=== PATIENT | female | born 1960 | race Caucasian/White ===

== ENCOUNTER → 2017-02-22 | Outpatient (CLI) | payer MEDICARE, OTHER ==
--- NOTE | 2017-02-22 15:49 | US ---
EXAMINATION TYPE: US venous doppler duplex UE LT DATE OF EXAM: 02/22/2017 COMPARISON: NONE CLINICAL HISTORY: M79.632 Pain in left forearm. Patient stated had pain with physician palpation over left posterior forearm thickening. Palpable noted by patient x 2 years. SIDE PERFORMED: left Grayscale, color doppler, spectral doppler imaging performed of the deep veins of the upper extremiti es. There is normal flow, compressibility and vascular waveforms. Left Arm: Negative for DVT. Negative for SVT. No discreet mass is noted at patient's palpable. IMPRESSION: No evidence for DVT.
== END | disposition home or self-care (01) ==
LOC: RADUSWWP 14:07
PROVIDERS: ATTEND Family Medicine
DX: M79.632 Pain in left forearm (principal)

== ENCOUNTER → 2017-05-16 | Outpatient (CLI) | payer MEDICARE, OTHER ==
--- NOTE | 2017-05-18 20:32 | EEG ---
ELECTROENCEPHALOGRAM REPORT VIDEO-ASSISTED NYSTAGMOGRAPHIC REPORT: AGE: 57 VNG INDICATIONS: Drewr-xwc-kqly-old female with vertigo. VNG FINDINGS: SACCADES: Saccades shows intact peak velocities, accuracies and latencies. GAZE TEST: Gaze with fixation shows no nystagmus in any of the directions of gaze. SINUSOIDAL TRACKING: Tracking shows no significant breakups. OKN TEST: Optikokinetic nystagmus shows no significant asymmetry. ANGELINA-HALLPIKE TEST: Metcalfe-Hallpike maneuvers are negative bilaterally. POSITION TEST: Static position testing in 6 positions tested, both with eyes open and then vision denied, shows no nystagmus. CALORIC TEST: Caloric testing shows a 20% unilateral right caloric weakness. Fixation index negative. Directional preponderance negative. IMPRESSION: Borderline chronic well-compensated vestibulopathy on the right. Other features of this VNG are unremarkable. MMJOAN / IJN: [id number] /
== END | disposition home or self-care (01) ==
LOC: NEUROMAIN 12:39
PROVIDERS: ATTEND Otolaryngology
DX: R42 Dizziness and giddiness (principal)
CPT/HCPCS: 92537; 92540

== ENCOUNTER → 2018-12-03 | Outpatient (CLI) | payer MEDICARE, OTHER ==
--- NOTE | 2018-12-05 11:16 | MM ---
Reason for exam: screening (asymptomatic). Last mammogram was performed 3 years and 2 months ago. History: Patient is postmenopausal. Physical Findings: A clinical breast exam by your physician is recommended on an annual basis and results should be correlated with mammographic findings. MG Screening Mammo w CAD Bilateral CC, MLO, and XCCL view(s) were taken. Prior study comparison: October 05, 2015, bilateral MG screening mammo w CAD. June 25, 2012, bilateral digital screening mammo w/CAD. There are scattered fibroglandular densities. No significant changes when compared with prior studies. ASSESSMENT: Benign, BI-RAD 2 RECOMMENDATION: Routine screening mammogram of both breasts in 1 year.
== END | disposition home or self-care (01) ==
LOC: RADMAMWWP 13:08
PROVIDERS: ATTEND Family Medicine
DX: Z12.31 Encounter for screening mammogram for malignant neoplasm of breast (principal)
CPT/HCPCS: 77067

== ENCOUNTER 2019-08-03 15:19 | Emergency (ER) | payer MEDICARE, OTHER ==
[2019-08-03] MEDS ORDERED: ONDANSETRON 4 MG/2 ML VIAL IM STA (15:50)
[2019-08-03] MEDS ORDERED: MECLIZINE 12.5 MG TAB PO STA (15:50)
--- NOTE | 2019-08-03 15:54 | ED ---
Fall HPI - General Chief Complaint: Fall Stated Complaint: Fall out of bed, Headache Time Seen by Provider: 08/03/19 15:34 Source: patient Mode of arrival: wheelchair - History of Present Illness Initial Comments: Patient is a 69-year-old female presenting to the emergency department with chief complaint of a fall. Patient reports 2 nights ago she went to sleep and throughout the night rolled off and fell off the bed to the floor. She reports in the morning she woke up crying and on the floor. She reports afterwards she developed nausea with multiple episodes of vomiting. She also reports dizziness where the room is spinning around her. She reports the symptoms are persistent until last night when she went to bed and woke up this morning without issues. After waking up, the nausea continued along with the vomiting and dizziness. Patient denies taking medication to alleviate his symptoms. Patient has no history of vertigo. - Related Data Home Medications Medication Instructions Recorded Confirmed Aspirin 81 mg PO DAILY 07/26/17 07/26/17 Budesonide/Formoterol Fumarate 1 puff INHALATION BID 07/26/17 07/26/17 [Symbicort 80-4.5 Mcg Inhaler] Cyclobenzaprine [Flexeril] 10 mg PO HS 07/26/17 07/26/17 Fluticasone Nasal [place] [Flonase 2 spr EA NOSTRIL DAILY 07/26/17 07/26/17 Nasal [place]] HYDROcodone/APAP 10-325MG [[place] 1 tab PO TID 07/26/17 07/26/17 10-325] Insulin Aspart Protam & Aspart 15 unit SQ AC-SUPPER 07/26/17 07/26/17 [NovoLOG MIX 70-30 Flexpen] Insulin Aspart Protam & Aspart 30 unit SQ AC-BRKFST 07/26/17 07/26/17 [NovoLOG MIX 70-30 Flexpen] Rosuvastatin Calcium [Crestor] 40 mg PO HS 07/26/17 07/26/17 clonazePAM [KlonoPIN] 1 mg PO TID 07/26/17 07/26/17 metFORMIN HCL 1,000 mg PO BID 07/26/17 07/26/17 Previous Rx's Medication Instructions Recorded Ibuprofen [Motrin] 600 mg PO Q6HR PRN #20 tab 05/29/15 Meclizine [Antivert] 25 mg PO TID PRN #15 tab 08/03/19 Ondansetron Odt [Zofran Odt] 4 mg PO Q8HR PRN #10 tab 08/03/19 Allergies Allergy/AdvReac Type Severity Reaction Status Date / Time benazepril [From Lotensin] Allergy Dyspnea Verified 07/26/17 08:57 ezetimibe [From Zetia] Allergy Rash/Hives Verified 07/26/17 08:57 niacin Allergy Rash/Hives Verified 07/26/17 08:57 Review of Systems ROS Statement: Those systems with pertinent positive or pertinent negative responses have been documented in the HPI. ROS Other: All systems not noted in ROS Statement are negative. Past Medical History Past Medical History: COPD, Diabetes Mellitus, Deep Vein Thrombosis (DVT), Hyperlipidemia Additional Past Medical History / Comment(s): MIGRAINE HEADACHE, History of Any Multi-Drug Resistant Organisms: None Reported Past Surgical History: Appendectomy, Hysterectomy, Tonsillectomy Additional Past Surgical History / Comment(s): tubes in ears Past Anesthesia/Blood Transfusion Reactions: No Reported Reaction Past Psychological History: Anxiety, Depression Smoking Status: Current every day smoker Past Alcohol Use History: None Reported Past Drug Use History: None Reported - Past Family History Father Family Medical History: Cancer General Exam Limitations: no limitations General appearance: alert, in no apparent distress, obese Head exam: Present: atraumatic, normocephalic, normal inspection. Absent: other (Negative Johnson sign, negative raccoon eyes, negative hemotympanum) Eye exam: Present: normal appearance, PERRL, EOMI Pupils: Present: normal accommodation ENT exam: Present: normal exam, mucous membranes moist Neck exam: Present: normal inspection, full ROM. Absent: tenderness Respiratory exam: Present: normal lung sounds bilaterally Cardiovascular Exam: Present: regular rate, normal rhythm, normal heart sounds Extremities exam: Present: normal inspection, full ROM, tenderness (Right forearm tenderness) Back exam: Present: normal inspection, full ROM Neurological exam: Present: alert, oriented X3 Psychiatric exam: Present: normal affect, normal mood Skin exam: Present: warm, dry, intact, normal color Course Vital Signs 08/03/19 08/03/19 15:27 18:54 Temperature 97.6 F 98.3 F Pulse Rate 90 91 Respiratory 18 16 Rate Blood Pressure 136/75 135/78 O2 Sat by Pulse 97 98 Oximetry Medical Decision Making - Medical Decision Making Patient is a 59-year-old female presenting to emergency Department with chief complaint of a fall. Patient fell off the bed while she was sleeping 2 days ago. Since then the patient has continued dizziness with the room spins around her which is causing her nausea and vomiting. Patient denies one-sided weakness or paresthesias. Patient is not on blood thinners. CT of the brain and C-spine is unremarkable. Patient also had a complaint of right forearm pain x-ray negative. I performed a Margot-Hallpike maneuver causing her increased dizziness. Patient was given Ativan and meclizine. Reevaluation patient reports improvement in his symptoms. Patient was also given Zofran for nausea. I performed the Luis maneuver, however it yielded minimal results. No nystagmus noted. Patient stated that she had "ear problems" but cannot remember the exact diagnosis. I suspect the patient has BPPV. Patient was advised to follow with an ENT specialist. Patient given Zofran and Antivert. Patient advised about the possible side effects of the medication. Strict return parameters were thoroughly discussed the patient is understanding and agreeable. Case discussed with physician. Disposition Clinical Impression: Fall Disposition: HOME SELF-CARE Condition: Stable Instructions (If sedation given, give patient instructions): Vertigo (DC), Benign Paroxysmal Positional Vertigo (ED) Additional Instructions: Please follow up with an ENT specialist. Please return to emergency department is symptoms worsen. Take prescribed medication as directed. Prescriptions: Meclizine [Antivert] 25 mg PO TID PRN #15 tab PRN Reason: Vertigo Is patient prescribed a controlled substance at d/c from ED?: No Referrals: Brian Fields MD [Primary Care Provider] - 1-2 days Rey Hallman DO [Doctor of Osteopathic Medicine] - 1-2 days Time of Disposition: 18:14
--- NOTE | 2019-08-03 16:13 | XR ---
EXAMINATION TYPE: XR forearm RT DATE OF EXAM: 08/03/2019 COMPARISON: NONE HISTORY: Pain TECHNIQUE: 2 views FINDINGS: I see no fracture nor dislocation. Elbow joint and wrist joint appear intact. IMPRESSION: Negative right forearm exam.
--- NOTE | 2019-08-03 17:01 | CT ---
EXAMINATION TYPE: CT brain cj wo con DATE OF EXAM: 08/03/2019 COMPARISON: None HISTORY: Pt fell out of bed, hitting head. CT DLP: 1760.2 mGycm Automated exposure control for dose reduction was used. Ventricles and sulci appear normal. There is no mass effect nor midline shift. There is no sign of in tracranial hemorrhage. The calvarium is intact. Cervical vertebra have normal alignment. There is posterior mild disc herniation and calcification at C5-6. Facet joints are intact. The skull base is intact. There is no evidence of a fracture. There i s no significant disc space narrowing. IMPRESSION: Negative CT scan of the brain. Mild spondylosis at C5-6. No fracture.
[2019-08-03] MEDS ORDERED: LORazepam 1 MG TAB PO STA (18:13)
[2019-08-03 18:56] VITALS: BP 135/78; PULSE 91; RESP 16; TEMP 98.3
== END 2019-08-03 18:54 | disposition home or self-care (01) ==
LOC: EC 15:19
DX: M79.631 Pain in right forearm (principal); R11.2 Nausea with vomiting, unspecified; R42 Dizziness and giddiness; J44.9 Chronic obstructive pulmonary disease, unspecified; E11.9 Type 2 diabetes mellitus without complications; E78.5 Hyperlipidemia, unspecified; F32.9 Major depressive disorder, single episode, unspecified; F41.9 Anxiety disorder, unspecified; F17.200 Nicotine dependence, unspecified, uncomplicated; Z88.8 Allergy status to other drugs, medicaments and biological substances; Z79.4 Long term (current) use of insulin; Z79.51 Long term (current) use of inhaled steroids; Z79.82 Long term (current) use of aspirin; Z79.891 Long term (current) use of opiate analgesic; Z79.899 Other long term (current) drug therapy; W06.XXXA Fall from bed, initial encounter; Y93.89 Activity, other specified; Y92.009 Unspecified place in unspecified non-institutional (private) residence as the place of occurrence of the external cause
CPT/HCPCS: 73090; 72125; 70450; 99284; 96372; J2405

== ENCOUNTER → 2019-09-10 | Outpatient (CLI) | payer MEDICARE, OTHER ==
--- NOTE | 2019-09-12 13:26 | ENG ---
ELECTRONYSTAGMOGRAM REPORT VNG REPORT: VNG INDICATIONS: A 59-year-old female with endorsement of dizziness, lightheadedness, imbalance, vertigo and falling since 2017 with symptoms increasing in October 2018, experiencing these 2 to 3 times a day, lasting for 2 to 3 minutes at a time. Dizziness can be precipitated by going from a lying to a seated position, rolling over in bed, bending over or movements of the head. History of diabetes and hypertension. VNG FINDINGS: Saccades shows intact peak velocities and borderline accuracies and latencies. Gaze with fixation shows no nystagmus in any of the directions of gaze including centrally with vision denied. Tracking shows impairments. Optokinetic nystagmus showed no asymmetry at slower speed and patient had difficulty with faster speeds and the test in general. Static position testing in 6 different positions shows no spontaneous nystagmus with the eyes open or with vision denied. Dynamic position testing was not done due to low back pain. Caloric testing shows bilateral caloric weakness. VNG IMPRESSION: 1. Bilateral weakness is suggested by testing today and so no determination as to vestibulopathy could be made. There was no spontaneous nystagmus. Another test such as head thrust test or if available active and passive rotation testing required to confirm presence of bilateral vestibular dysfunction. 2. Multiple abnormalities including impaired tracking and borderline saccades are features favoring central nervous system dysfunction. Clinical correlation necessary in that regard. 3. Dynamic position testing was not performed and so benign positional vertigo not excluded. DEBRA / NAYN: [id number] /
== END | disposition home or self-care (01) ==
LOC: NEUROMAIN 06:49
PROVIDERS: ATTEND Otolaryngology
DX: H81.8X3 Other disorders of vestibular function, bilateral (principal)
CPT/HCPCS: 92537; 92540

== ENCOUNTER → 2019-10-02 | Outpatient (CLI) | payer MEDICARE, OTHER ==
--- NOTE | 2019-10-02 10:15 | CT ---
EXAMINATION TYPE: CT iac wo con DATE OF EXAM: 10/02/2019 COMPARISON: None HISTORY: Vertigo CT DLP: 150mGycm Automated exposure control for dose reduction was used. FINDINGS: The external auditory canals are patent bilaterally. Moderate opacification right-sided mas toid air cells compatible with chronic mastoiditis with mild coalescence suggested. Left-sided mastoi d air cells are well-aerated. There is soft tissue within the right-sided epitympanum felt to reflect cholesteatoma without bony destruction. The scutum is preserved bilaterally. No soft tissue is noted to surround the left-sided ossicular chain. Destruction seen. The cochlea and the semicircular canal s are symmetric and unremarkable. Vestibular aqueduct and internal carotid canal appear unremarkable . Temporomandibular joints are maintained bilaterally. IMPRESSION: 1. Suspect right-sided cholesteatoma without bone destruction. 2. Right-sided mastoiditis with the mild coalescence suggested.
== END | disposition home or self-care (01) ==
LOC: RADCTMAIN 09:07
PROVIDERS: ATTEND Otolaryngology
DX: H93.3X9 Disorders of unspecified acoustic nerve (principal); R42 Dizziness and giddiness
CPT/HCPCS: 70480

== ENCOUNTER 2019-10-11 09:17 | Emergency (ER) | payer MEDICARE, OTHER ==
[2019-10-11 09:22] VITALS: RESP 18; TEMP 98.1
[2019-10-11] MEDS ORDERED: methylPREDNISolone SOD SUCCI 125 MG/2 ML VIAL IV STA (09:48)
[2019-10-11] MEDS ORDERED: methylPREDNISolone SOD SUCCI 125 MG/2 ML VIAL IM ONE (10:04)
--- NOTE | 2019-10-11 10:26 | XR ---
EXAMINATION TYPE: XR chest 2V DATE OF EXAM: 10/11/2019 HISTORY: cough, sob. REFERENCE: Previous study dated 05/29/2015. FINDINGS: The lungs remain clear. Pleural spaces are clear. The heart is not enlarged. IMPRESSION: NORMAL CHEST.
[2019-10-11] MEDS ORDERED: IPRATROPIUM-ALBUTEROL 3 ML NEB INHALATION STA (10:35)
--- NOTE | 2019-10-11 10:51 | ED ---
URI HPI - General Chief Complaint: Upper Respiratory Infection Stated Complaint: coughing/ODESSA Time Seen by Provider: 10/11/19 09:31 Source: patient, RN notes reviewed, old records reviewed Mode of arrival: ambulatory Limitations: no limitations - History of Present Illness Initial Comments: 51-year-old female, history of smoking. She presents today with cough congestion sore throat and bodyaches for the past week. She is here with her daughter with similar complaints. Patient reports no specific chest pain. She states that her coughing seemed to be somewhat worse at night. Patient states she is trying to quit smoking. - Related Data Home Medications Medication Instructions Recorded Confirmed Aspirin 81 mg PO DAILY 07/26/17 07/26/17 Budesonide/Formoterol Fumarate 1 puff INHALATION BID 07/26/17 07/26/17 [Symbicort 80-4.5 Mcg Inhaler] Cyclobenzaprine [Flexeril] 10 mg PO HS 07/26/17 07/26/17 Fluticasone Nasal [place] [Flonase 2 spr EA NOSTRIL DAILY 07/26/17 07/26/17 Nasal [place]] HYDROcodone/APAP 10-325MG [[place] 1 tab PO TID 07/26/17 07/26/17 10-325] Insulin Aspart Protam & Aspart 15 unit SQ AC-SUPPER 07/26/17 07/26/17 [NovoLOG MIX 70-30 Flexpen] Insulin Aspart Protam & Aspart 30 unit SQ AC-BRKFST 07/26/17 07/26/17 [NovoLOG MIX 70-30 Flexpen] Rosuvastatin Calcium [Crestor] 40 mg PO HS 07/26/17 07/26/17 clonazePAM [KlonoPIN] 1 mg PO TID 07/26/17 07/26/17 metFORMIN HCL 1,000 mg PO BID 07/26/17 07/26/17 Previous Rx's Medication Instructions Recorded Ibuprofen [Motrin] 600 mg PO Q6HR PRN #20 tab 05/29/15 Meclizine [Antivert] 25 mg PO TID PRN #15 tab 08/03/19 Ondansetron Odt [Zofran Odt] 4 mg PO Q8HR PRN #10 tab 08/03/19 Acetaminophen Tab [Tylenol Tab] 500 mg PO Q6H #20 tablet 02/22/20 Albuterol Inhaler [Ventolin Hfa 1 - 2 puff INHALATION RT-Q6H PRN 10/11/19 Inhaler] #1 inhaler Ipratropium-Albuterol Nebulize 3 ml INHALATION QID #30 neb 10/11/19 [Duoneb 0.5 mg-3 mg/3 ml Soln] Ipratropium-Albuterol Nebulize 3 ml INHALATION QID #30 neb 10/11/19 [Duoneb 0.5 mg-3 mg/3 ml Soln] Ipratropium-Albuterol Nebulize 3 ml INHALATION QID #30 neb 10/11/19 [Duoneb 0.5 mg-3 mg/3 ml Soln] Oseltamivir [Tamiflu] 75 mg PO DAILY #10 cap 10/11/19 Allergies Allergy/AdvReac Type Severity Reaction Status Date / Time benazepril [From Lotensin] Allergy Dyspnea Verified 07/26/17 08:57 ezetimibe [From Zetia] Allergy Rash/Hives Verified 07/26/17 08:57 niacin Allergy Rash/Hives Verified 07/26/17 08:57 Review of Systems ROS Statement: Those systems with pertinent positive or pertinent negative responses have been documented in the HPI. ROS Other: All systems not noted in ROS Statement are negative. Past Medical History Past Medical History: COPD, Diabetes Mellitus, Deep Vein Thrombosis (DVT), Hyperlipidemia Additional Past Medical History / Comment(s): MIGRAINE HEADACHE, History of Any Multi-Drug Resistant Organisms: None Reported Past Surgical History: Appendectomy, Hysterectomy, Tonsillectomy Additional Past Surgical History / Comment(s): tubes in ears Past Anesthesia/Blood Transfusion Reactions: No Reported Reaction Past Psychological History: Anxiety, Depression Smoking Status: Current every day smoker Past Alcohol Use History: None Reported Past Drug Use History: None Reported - Past Family History Father Family Medical History: Cancer General Exam - General Exam Comments Initial Comments: 59-year-old female. Alert and oriented 3. No distress. General: Well appearing, well nourished, in no distress. Oriented x 3, normal mood and affect . Ambulating without difficulty. Skin: Good turgor, no rash, unusual bruising or prominent lesions Hair: Normal texture and distribution. HEENT: Head: Normocephalic, atraumatic, no visible or palpable masses, depressions, or scaring. Eyes: Visual acuity intact, conjunctiva clear, sclera non-icteric, EOM intact, PERRL. Ears: EACs clear, TMs translucent & cone of light visualized. hearing intact. Nose: No external lesions, mucosa non-inflamed, septum and turbinates normal Mouth: Mucous membranes moist, no mucosal lesions. Teeth/Gums: No obvious caries or periodontal disease. No gingival inflammation or significant resorption. Pharynx: Mucosa non-inflamed, no tonsillar hypertrophy or exudate Neck: Supple, without lesions, bruits, or adenopathy, thyroid non-enlarged and non-tender Heart: No cardiomegaly or thrills; regular rate and rhythm, no murmur or gallop Lungs: No wheezing. No stridor. Abdomen: Bowel sounds normal, no tenderness, organomegaly, masses, or hernia Back: Spine normal without deformity or tenderness, no CVA tenderness Extremities: No amputations or deformities, cyanosis, edema or varicosities, peripheral pulses intact Musculoskeletal: Normal gait and station. No misalignment, asymmetry, crepitation, defects, tenderness, masses, effusions, decreased range of motion, instability, atrophy or abnormal strength or tone in the head, neck, spine, ribs, pelvis or extremities. Neurologic: CN 2-12 normal. Sensation to pain, touch, and proprioception normal. DTRs normal in upper and lower extremities. No pathologic reflexes. Limitations: no limitations Course Vital Signs 10/11/19 10/11/19 10/11/19 09:19 10:56 11:06 Temperature 98.1 F Pulse Rate 89 92 90 Respiratory 18 Rate Blood Pressure 119/67 O2 Sat by Pulse 96 Oximetry 10/11/19 11:24 Temperature Pulse Rate 92 Respiratory 18 Rate Blood Pressure 112/70 O2 Sat by Pulse 93 L Oximetry Medical Decision Making - Medical Decision Making 51-year-old female with sore throat cough congestion. Patient is a smoker. She has been wheezing on exam. Patient is positive for influenza. Patient will be started on Tamiflu, discussed dosing Motrin Tylenol. She is given a breathing treatment July. Discussed return parameters and close PCP follow-up. Patient will also be prescribed due to treatments to use for abdominal nebulizer. All questions answered return parameters were discussed. - Lab Data Lab Results 10/11/19 Range/Units 09:57 Influenza Type A RNA Detected H (Not Detectd) Influenza Type B (PCR) Not Detected (Not Detectd) - Radiology Data Radiology results: report reviewed EKG shows 20 4:42 AM shows normal sinus rhythm normal EKG. Ventricular rate of 92 bpm. Was 132 ms. Stressors and is 86 no seconds. QT QTc is 352/435 ms. Disposition Clinical Impression: Influenza A, Bronchitis Disposition: HOME SELF-CARE Condition: Good Instructions (If sedation given, give patient instructions): Influenza (ED) Additional Instructions: Patient advsied to a take Tylenol or Motrin for fever and pain. Taking the steroid use inhaler as needed. Return to ED if any alarming signs or symptoms occur. Prescriptions: Ipratropium-Albuterol Nebulize [Duoneb 0.5 mg-3 mg/3 ml Soln] 3 ml INHALATION QID #30 neb Ipratropium-Albuterol Nebulize [Duoneb 0.5 mg-3 mg/3 ml Soln] 3 ml INHALATION QID #30 neb Ipratropium-Albuterol Nebulize [Duoneb 0.5 mg-3 mg/3 ml Soln] 3 ml INHALATION QID #30 neb Oseltamivir [Tamiflu] 75 mg PO DAILY #10 cap Acetaminophen Tab [Tylenol Tab] 500 mg PO Q6H #20 tablet Albuterol Inhaler [Ventolin Hfa Inhaler] 1 - 2 puff INHALATION RT-Q6H PRN #1 inhaler PRN Reason: Shortness Of Breath Is patient prescribed a controlled substance at d/c from ED?: No Referrals: Brian Fields MD [Primary Care Provider] - 1-2 days Time of Disposition: 10:49
[2019-10-11 11:25] VITALS: BP 112/70; PULSE 92
== END 2019-10-11 11:24 | disposition home or self-care (01) ==
LOC: EC 09:17
DX: J10.1 Influenza due to other identified influenza virus with other respiratory manifestations (principal); J40 Bronchitis, not specified as acute or chronic; E11.9 Type 2 diabetes mellitus without complications; E78.5 Hyperlipidemia, unspecified; F41.9 Anxiety disorder, unspecified; F32.9 Major depressive disorder, single episode, unspecified; F17.200 Nicotine dependence, unspecified, uncomplicated; Z79.4 Long term (current) use of insulin; Z79.82 Long term (current) use of aspirin; Z79.51 Long term (current) use of inhaled steroids; Z79.899 Other long term (current) drug therapy; Z88.8 Allergy status to other drugs, medicaments and biological substances; Z86.718 Personal history of other venous thrombosis and embolism
CPT/HCPCS: 94640; 87502; 71046; 99285; 96372; J2930

== ENCOUNTER → 2020-12-02 | Outpatient (CLI) | payer MEDICARE, OTHER ==
--- NOTE | 2020-12-02 16:18 | CONS ---
CONSULTATION DATE OF SERVICE: 12/02/2020 This 60-year-old lady has been evaluated in [facility] for obstructive sleep apnea- hypopnea syndrome. HISTORY OF PRESENT ILLNESS/SLEEP-WAKE EVALUATION: The patient was diagnosed with obstructive sleep apnea 6-1/2 years ago and was started on treatment with CPAP but stopped treatment more than one year ago. At present her sleep schedule is from 11 p.m. to 6 or 7 a.m. She does have problems with falling asleep, has a TV set in the bedroom. She snores loudly and wakes up from sleep up to 5 times, with up to 4 episodes of nocturia. Her symptoms are also positive for kicking at night. She wakes up with a dry mouth, heartburn, episodes of gasping for air, choking, restless legs, sleeptalking, sweating. In the morning the patient wakes up tired, worries about falling asleep during the day. Bigelow Sleepiness Scale is 5. PAST MEDICAL HISTORY: Positive for hypertension, diabetes mellitus, arthritis. PAST SURGICAL HISTORY: Appendectomy, tonsillectomy, total hysterectomy. MEDICATIONS: 1. Hydrocodone 3 times a day. 2. Rosuvastatin 40 mg once a day. 3. Metformin 1000 mg twice a day. 4. Meclizine 25 mg 4 times a day. 5. Clonazepam 0.5 mg twice a day. 6. Cyclobenzaprine 3 times a day. 7. Diclofenac 7.5 mg twice a day. 8. NovoLog twice a day. SOCIAL HISTORY: Positive for smoking for 20 pack/years. Alcohol consumption: None. FAMILY HISTORY: Cancer, headaches, hyperlipidemia, fibromyalgia. REVIEW OF SYSTEMS: No fevers. No double vision. No recent chest pain. No shortness of breath. No abdominal pain. No bleeding episodes. No blood in the urine. No seizure episodes. Loud snoring, multiple awakenings from sleep, kicking during the sleep. PHYSICAL EXAMINATION: GENERAL: A pleasant lady without distress. VITAL SIGNS: BP 151/68, HR 100, RR 18, height 5 feet 5 inches, weight 253.2, temperature 97.1. Oxygen saturation 93%. HEENT: PERRLA, EOMI. Evaluation of oropharynx showed tongue protrudes midline. Extremely low position of soft palate. Mallampati IV. NECK: Supple. No JVD. Thyroid is not palpable. Neck is wide; 16-1/2 inches in circumference. LUNGS: Clear to percussion and to auscultation. Good air exchange. No wheezing or rhonchi. HEART: S1, S2 regular. No murmurs, gallops or rubs. ABDOMEN: Obese. EXTREMITIES: No clubbing or cyanosis. TENT FINISHER: Awake, alert, and oriented X3. Cranial nerves 2 to 7 intact. There is no fasciculation or atrophy. noted. No focal deficits observed. IMPRESSION: 1. Loud snoring, multiple awakenings from sleep with choking and gasping for air, history of obstructive sleep apnea in the past, extremely low position of soft palate, Mallampati IV, wide neck at 16-1/2 inches in circumference; obstructive sleep apnea-hypopnea syndrome. 2. Obesity. BMI 42.1. 3. Kicking during the sleep. Possibly periodic limb movements. 4. Hypertension. 5. Diabetes mellitus. 6. Arthritis. 7. Status post appendectomy. 8. Status post tonsillectomy. 9. Status post total hysterectomy. 10.Decreasing hearing from the right ear. PLAN: 1. Polysomnography for evaluation of patient's breathing during sleep. 2. CPAP/BiPAP titration if sleep study confirms obstructive sleep apnea-hypopnea syndrome. 3. Preferable position during sleep on the side. 4. No driving if patient feels any sleepiness. 5. I will see patient for follow up visit to explain results of testing and following plan. Thank you very much for referring this patient for consultation. Sincerely, Renan Kramer MD, PhD, FAASM Diplomat of [place] [employer] [place] [employer] [facility] [place] MMODL / IJN: [id number] /
== END ==
LOC: SLEEP 13:40
PROVIDERS: ATTEND Internal Medicine
DX: G47.33 Obstructive sleep apnea (adult) (pediatric) (principal); E11.9 Type 2 diabetes mellitus without complications; I10 Essential (primary) hypertension; E66.9 Obesity, unspecified; Z68.41 Body mass index [BMI] 40.0-44.9, adult; H91.91 Unspecified hearing loss, right ear; M19.90 Unspecified osteoarthritis, unspecified site; F17.210 Nicotine dependence, cigarettes, uncomplicated; Z90.710 Acquired absence of both cervix and uterus; Z90.09 Acquired absence of other part of head and neck; Z90.89 Acquired absence of other organs
CPT/HCPCS: 99211

== ENCOUNTER → 2021-02-17 | Outpatient (CLI) | payer MEDICARE, OTHER ==
--- NOTE | 2021-02-17 22:51 | SLS ---
SLEEP STUDY 61-year-old lady has been followed in Sleep Center for treatment of obstructive sleep apnea-hypopnea syndrome. Recently patient had a polysomnogram which showed the patient has moderate obstructive sleep apnea and then she had a CPAP titration. I discussed results of sleep studies with patient in details. The patient received her CPAP unit and today is her 1st visit after she was started on treatment. The patient feels better with the CPAP machine. She sleeps better and feeling better during the day. I checked her CPAP unit. Range of the pressure 5-14, average pressure 13.9 cm of water, usage every night and 27 out of 28 nights for more than 4 hours. Leak is only 2 L/minute. Apnea-hypopnea index is 1.3, which is absolutely perfect. [place] Sleepiness Scale today is only 2, which is normal. MEDICATIONS: 40 mg once a day, metformin 1000 mg twice a day, meclizine 25 mg 4 times a day. Clonazepam 0.5 mg twice a day. Cyclobenzaprine 3 times a day, Diclofenac 7.5 mg twice a day, NovoLog twice a day. PHYSICAL EXAMINATION: GENERAL: Patient in no distress. BP 146/73, HR 100, RR 15, weight 249, temp 97.9. Oxygen saturation at room air 95%. HEENT: Oropharynx extremely low position of soft palate. Mallampati IV. NECK: Supple, no JVD. Thyroid is not palpable. LUNGS: Clear to percussion and to auscultation. Good air exchange. No wheezing or rhonchi. HEART: S1, S2 regular. No murmurs, gallops, or rubs. ABDOMEN: Obese. Soft and nontender. Bowel sounds are present. No organomegaly appreciated. EXTREMITIES: No clubbing or cyanosis. GANG TAILER: Awake, alert, and oriented X3. Cranial nerves 2 to 7 intact. There is no fasciculation or atrophy. noted. No focal deficits observed. IMPRESSION: 1. Moderate obstructive sleep apnea-hypopnea syndrome; apnea-hypopnea index 25.4 with oxygen desaturation to 82.7% on control with CPAP. The patient demonstrated great compliance with treatment benefitting from treatment. 2. Obesity. 3. Hypertension. 4. Diabetes mellitus. 5. Arthritis. 6. Status post appendectomy. 7. Status post tonsillectomy. 8. Status post total hysterectomy. 9. Decreasing hearing on the right ear. PLAN: 1. Patient will continue to use PAP equipment every night for the whole night. 2. Sleep hygiene with regular time in bed for at least 7-1/2 to 8 hours. 3. Precautions related to driving. No driving if feeling sleepiness. 4. I will maintain all necessary prescription for PAP supplies including mask, tube, filters. 5. Watching weight. 6. Follow-up visit in 6 months or earlier if patient has any problems. 7. I increased humidity level from 4-6 because sometimes patient feels dryness in her mouth. Thank you very much for allowing me to participate in management of your patient. Sincerely, Renan Kramer MD, PhD, FAASM Diplomat of [place] [employer] [place] [employer] Mine Manager of [facility] [place] MMODL / KM: [id number] /
== END ==
LOC: SLEEP 15:16
PROVIDERS: ATTEND Internal Medicine
DX: G47.33 Obstructive sleep apnea (adult) (pediatric) (principal); E66.9 Obesity, unspecified; I10 Essential (primary) hypertension; E11.9 Type 2 diabetes mellitus without complications; H91.91 Unspecified hearing loss, right ear; M19.90 Unspecified osteoarthritis, unspecified site; F17.200 Nicotine dependence, unspecified, uncomplicated; Z90.710 Acquired absence of both cervix and uterus; Z90.49 Acquired absence of other specified parts of digestive tract; Z90.89 Acquired absence of other organs; Z79.4 Long term (current) use of insulin; Z79.1 Long term (current) use of non-steroidal anti-inflammatories (NSAID); Z88.8 Allergy status to other drugs, medicaments and biological substances

== ENCOUNTER → 2021-04-14 | Outpatient (CLI) | payer MEDICARE, OTHER ==
--- NOTE | 2021-04-18 11:43 | MM ---
Reason for exam: screening (asymptomatic). Last mammogram was performed 2 years and 4 months ago. History: Patient is postmenopausal. Family history of breast cancer in maternal cousin. Physical Findings: A clinical breast exam by your physician is recommended on an annual basis and results should be correlated with mammographic findings. MG Screening Mammo w CAD Bilateral CC, MLO, and XCCL view(s) were taken. Prior study comparison: December 03, 2018, bilateral MG screening mammo w CAD. October 05, 2015, bilateral MG screening mammo w CAD. There are scattered fibroglandular densities. No significant changes when compared with prior studies. ASSESSMENT: Negative, BI-RAD 1 RECOMMENDATION: Routine screening mammogram of both breasts in 1 year.
== END | disposition home or self-care (01) ==
LOC: RADMAMWWP 09:08
PROVIDERS: ATTEND Family Medicine
DX: Z12.31 Encounter for screening mammogram for malignant neoplasm of breast (principal); Z78.0 Asymptomatic menopausal state; Z80.3 Family history of malignant neoplasm of breast
CPT/HCPCS: 77067

== ENCOUNTER → 2021-08-24 | Outpatient (CLI) | payer MEDICARE, OTHER ==
--- NOTE | 2021-08-25 12:12 | SFUN ---
SLEEP CENTER FOLLOW UP NOTE DATE OF SERVICE: 08/24/2021. 61-year-old lady has been followed in Sleep Center for treatment of obstructive sleep apnea-hypopnea syndrome. Patient continued to use her CPAP equipment every night for the whole night. Does not snore, getting her CPAP supplies in time. [place] Sleepiness Scale today is 4 which is normal. I checked her CPAP unit. Range of the pressure 5-14, average pressure is 13.3, usage 22/30 nights. Average 5.3 hours per night. Leak is 8 L/minute which is normal range. Apnea-hypopnea index is 1.7, which is totally normal. MEDICATIONS: Aspirin 81 mg once a day, Diclofenac 75 mg twice a day, Flexeril 10 mg at bedtime once a day, metformin 1000 mg twice a day, [place] 10/325 mg 3 times a day. Novolog injection, Rosuvastatin 40 mg once a day, vitamin D supplement. PHYSICAL EXAMINATION: GENERAL: lady without distress. BP 149/73, HR 97, RR 18, height 5 feet 3-1/2 inches, weight 250.6 pounds, body mass index 43.5, temperature 96.8, oxygen saturation at room air 94%. Oropharynx: Extremely low position of soft palate, Mallampati 4. NECK: Supple, no JVD. Thyroid is not palpable. LUNGS: Clear to percussion and to auscultation. Good air exchange. No wheezing or rhonchi. HEART: S1, S2 regular. No murmurs, gallops, or rubs. ABDOMEN: Obese. Soft and nontender. Bowel sounds are present. No organomegaly appreciated. EXTREMITIES: No clubbing or cyanosis. HOSIERY BAGGER: Awake, alert, and oriented X3. Cranial nerves 2 to 7 intact. There is no fasciculation or atrophy. noted. No focal deficits observed. IMPRESSION: 1. Obstructive sleep apnea-hypopnea syndrome apnea-hypopnea index 25.4. The patient demonstrated borderline compliance with treatment benefitting from treatment normal respiration on CPAP. 2. Hypertension. 3. Obesity. 4. Diabetes mellitus. 5. Arthritis. 6. Status post tonsillectomy. 7. Status post appendectomy. 8. Status post hysterectomy. 9. Some decreasing area hearing on the right ear. PLAN: 1. Patient will continue to use PAP equipment every night for the whole night. 2. Sleep hygiene with regular time in bed for at least 7-1/2 to 8 hours. 3. Precautions related to driving. No driving if feeling sleepiness. 4. I will maintain all necessary prescription for PAP supplies including mask, tube, filters. 5. Watching weight. 6. Follow-up visit in 6 months or earlier if patient has any problems. Thank you very much for allowing me to participate in management of your patient. Sincerely, Renan Kramer MD, PhD, FAASM Diplomat of [place] [employer] Sleep Medicine Board of [place] [employer] Medicine Packing Clerk of [facility] [place] MMODL / IJN: [id number] /
== END ==
LOC: SLEEP 15:12
PROVIDERS: ATTEND Internal Medicine
DX: G47.33 Obstructive sleep apnea (adult) (pediatric) (principal); I10 Essential (primary) hypertension; E66.9 Obesity, unspecified; E11.9 Type 2 diabetes mellitus without complications; M19.90 Unspecified osteoarthritis, unspecified site; H91.91 Unspecified hearing loss, right ear; F17.200 Nicotine dependence, unspecified, uncomplicated; Z90.89 Acquired absence of other organs; Z90.710 Acquired absence of both cervix and uterus; Z90.49 Acquired absence of other specified parts of digestive tract; Z99.89 Dependence on other enabling machines and devices; Z79.82 Long term (current) use of aspirin; Z79.84 Long term (current) use of oral hypoglycemic drugs; Z79.4 Long term (current) use of insulin; Z88.8 Allergy status to other drugs, medicaments and biological substances; Z68.41 Body mass index [BMI] 40.0-44.9, adult

== ENCOUNTER → 2022-03-29 | Outpatient (CLI) | payer MEDICARE, OTHER ==
--- NOTE | 2022-03-29 11:51 | P.PN ---
Subjective DATE: 03/29/2022 FOLLOW UP VISIT. Patient with obstructive sleep apnea hypopnea syndrome return to sleep center for follow-up visit. Information from previous visit have been reviewed. Patient is using PAP equipment every night for the whole night, getting PAP supplies in time. Presently because of way hot weather several nights patient was not able to use Pap equipment. The patient does not have significant problems with the mask, PAP unit and humidification. [place] sleepiness scale is for. I checked information from PAP unit. PAP unit pressure 514, average 13.8 cm H2O. Usage is 70 % for more then 4 hours, average 4.6 hours per night for last 6 months. Leak is 38 l/m, which is increased. Apnea Hypopnea Index is 1.7, which is normal. Air filter is in bad condition. Patient replaced air filter during visit. MEDICATIONS:1. Aspirin 81 mg once a day 2. Flexeril 10 mg once a day 3. Metformin 1000 mg twice a day 4. [place] [address] milligrams 3 times a day 5. Rosuvastatin 40 mg once a day 6. NovoLog During physical exam: GENERAL: A pleasant patient without any distress. VITAL SIGNS: BP 116/74, HR 91, RR 20 , weight 237.4, temperature 96.5, oxygen saturation at room air 96 % . HEENT: PERRLA, EOMI.low position of soft palate, Mallapati 4 . NECK: Supple. No JVD. LUNGS: Clear to percussion and to auscultation. Good air exchange. No wheezing or rhonchi. HEART: S1, S2 regular. ABDOMEN: Soft and nontender. Obese EXTREMITIES: No clubbing or cyanosis. UTILITY DRIVER: Awake, alert, and oriented x3. No focal deficit. Impressions: 1. Obstructive sleep apnea-hypopnea syndrome. Patient demonstrated borderline compliance with treatment, benefiting from treatment. Normal respiration on CPAP. 2. Obesity. Patient lost 13 pounds since previous visit. 3. Hypertension. 4. Diabetes mellitus. 5. Arthritis. 6. Status post hysterectomy. 7. Status post tonsillectomy. 8. Status post appendectomy. Plan: 1. Continue using PAP equipment every night for the whole night. 2. To change air filter at least 1-2 times per month. 3. PAP unit should stay lower then position of the head. 4. Advised patient to remove all remaining water from humidifier canister daily and make it dry after each usage. Refill canister with fresh distilled water before each usage. 5. Sleep hygiene with regular time in bed for at least 8 hours. 6. Precautions related to driving. No driving if feel any sleepiness. 7. I will maintain prescription for PAP supplies including mask, tube, filters. 8. Follow up visit in 6 months or earlier if patient has any problems. 9. Watching weight. Thank you very much for allowing me to participate in the management of your patient. Renan Kramer MD, PhD, FAASM. Diplomat of [place] [employer] Medicine, Sleep Medicine Board by [place] [employer] Internal Medicine Assistant Grocery of [facility] [place]
== END | disposition home or self-care (01) ==
LOC: SLEEP 11:07
PROVIDERS: ATTEND Internal Medicine
DX: G47.33 Obstructive sleep apnea (adult) (pediatric) (principal); E66.9 Obesity, unspecified; I10 Essential (primary) hypertension; E11.9 Type 2 diabetes mellitus without complications; M19.90 Unspecified osteoarthritis, unspecified site; F17.200 Nicotine dependence, unspecified, uncomplicated; Z90.710 Acquired absence of both cervix and uterus; Z90.89 Acquired absence of other organs; Z90.49 Acquired absence of other specified parts of digestive tract; Z79.4 Long term (current) use of insulin; Z79.84 Long term (current) use of oral hypoglycemic drugs; Z88.8 Allergy status to other drugs, medicaments and biological substances

== ENCOUNTER → 2022-05-05 | Outpatient (CLI) | payer MEDICARE, OTHER ==
--- NOTE | 2022-05-08 17:24 | MM ---
Reason for Exam: Screening (asymptomatic). Last mammogram was performed 1 year(s) and 1 month(s) ago. Patient History: Menarche at age 15. First Full-Term at age 18. Left ovary removed at age 40. Right ovary removed at age 40. Hysterectomy at age 40. Postmenopausal. Maternal cousin had breast cancer. Risk Values: [place] 5 year model risk: 1.0%. NCI Lifetime model risk: 4.7%. Prior Study Comparison: 10/05/2015 Bilateral Screening Mammogram, [facility]. 12/03/2018 Bilateral Screening Mammogram, [facility]. 04/14/2021 Bilateral Screening Mammogram, [facility]. Tissue Density: The breast tissue is almost entirely fat. Findings: Analyzed By CAD. Benign spherical calcifications within the left breast. Additional punctate benign-appearing calcifications are present. No suspicious groups of microcalcifications, spiculated or lobular masses, architectural distortion or other secondary signs of malignancy are mammographically apparent. Overall Assessment: Benign, BI-RAD 2 Management: Screening Mammogram of both breasts in 1 year. A negative mammogram report should not preclude additional follow up of suspicious palpable abnormalities. Patient should continue monthly self breast exam. A clinical breast exam by your physician is recommended on an annual basis and results should be correlated with mammographic findings. Electronically signed and approved by: Giovany Tillman D.O. Radiologis
== END | disposition home or self-care (01) ==
LOC: RADMAMWWP 10:08
PROVIDERS: ATTEND Family Medicine
DX: Z12.31 Encounter for screening mammogram for malignant neoplasm of breast (principal); Z78.0 Asymptomatic menopausal state; Z80.3 Family history of malignant neoplasm of breast
CPT/HCPCS: 77067

== ENCOUNTER → 2023-01-22 | Outpatient (CLI) | payer MEDICARE, OTHER ==
--- NOTE | 2023-01-22 12:05 | XR ---
EXAMINATION TYPE: XR lumbosacral spine min 4V DATE OF EXAM: 01/22/2023 CLINICAL HISTORY: DDD and chronic low back pain. TECHNIQUE: Frontal, lateral, and oblique images of the lumbar spine are obtained. COMPARISON: Prior MRI lumbar spine 2009 FINDINGS: There are 5 lumbar type vertebral bodies redemonstrated. The lumbar spine shows stable an d satisfactory alignment without evidence of acute fracture or dislocation. Mild disc space narrowing with mild to moderate anterior spurring at L2-L3 level. Vertebral body heights and disk space height s otherwise are within normal limits. The oblique images appear within normal limits. Mild overlyin g arterial vascular calcification. There is facet arthropathy in the lower lumbar spine. IMPRESSION: As above.
== END | disposition home or self-care (01) ==
LOC: RADXRMAIN 11:32
PROVIDERS: ATTEND Physical Medicine & Rehabilitation
DX: M51.06 Intervertebral disc disorders with myelopathy, lumbar region (principal); M47.816 Spondylosis without myelopathy or radiculopathy, lumbar region; M51.37 Other intervertebral disc degeneration, lumbosacral region
CPT/HCPCS: 72110

== ENCOUNTER → 2023-04-19 | Outpatient (CLI) | payer MEDICARE, OTHER ==
--- NOTE | 2023-04-19 12:13 | P.PN ---
Subjective DATE: 04/19/2023 FOLLOW UP VISIT. Patient with obstructive sleep apnea hypopnea syndrome return to sleep center for follow-up visit. Information from previous visit have been reviewed. Patient is using PAP equipment every night for the whole night, getting PAP supplies in time. The patient does not have significant problems with the mask, PAP unit and humidification. [place] sleepiness scale is borderline 10. I checked information from PAP unit. PAP unit pressure 5-14, average 11.9 cm H2O. Usage is 73% of nights , average 4.2 hours per night. Leak is 29.9 l/m, which is in acceptable range. Apnea Hypopnea Index is 1.3, which is normal. MEDICATIONS:1. Clonazepam 0.5 mg as needed 2. Metformin 1000 mg twice a day 3. [place] to 3 times a day 4. Ventolin 5. Rosuvastatin 40 mg once a day 6. Meclizine 25 mg as needed 7. Insulin During physical exam: GENERAL: A pleasant patient without any distress. VITAL SIGNS: BP 129/81, HR 96, RR 12 , weight 211.2, temperature 96.6, oxygen saturation at room air 97 % . HEENT: PERRLA, EOMI.low position of soft palate, Mallapati 4 . NECK: Supple. No JVD. LUNGS: Clear to percussion and to auscultation. Good air exchange. No wheezing or rhonchi. HEART: S1, S2 regular. ABDOMEN: Soft and nontender.[] EXTREMITIES: No clubbing or cyanosis. BRANCH OPERATIONS COORDINATOR: Awake, alert, and oriented x3. No focal deficit. Impressions: 1. Obstructive sleep apnea-hypopnea syndrome. Patient demonstrated borderline compliance with treatment, benefiting from treatment. 2. Diabetes mellitus. 3. Hypertension. 4. Obesity, body mass index 37.3. 5. Arthritis. 6. Status post hysterectomy. 7. Status post tonsillectomy. Plan: 1. Continue using PAP equipment every night for the whole night. 2. To change air filter at least 1-2 times per month. 3. PAP unit should stay lower then position of the head. 4. Advised patient to remove all remaining water from humidifier canister daily and make it dry after each usage. Refill canister with fresh distilled water before each usage. 5. Sleep hygiene with regular time in bed for at least 8 hours. 6. Precautions related to driving. No driving if feel any sleepiness. 7. I will maintain prescription for PAP supplies including mask, tube, filters. 8. Follow up visit in 6 months or earlier if patient has any problems. 9. Watching and losing weight. Thank you very much for allowing me to participate in the management of your patient. Renan Kramer MD, PhD, FAASM. Diplomat of [place] [employer] Sleep Medicine, Sleep Medicine Board by [place] [employer] Medicine Mgmt Specialist of [facility] [place]
== END ==
LOC: 3 N SLEEP 10:29
PROVIDERS: ATTEND Internal Medicine
DX: G47.33 Obstructive sleep apnea (adult) (pediatric) (principal); E11.9 Type 2 diabetes mellitus without complications; E66.9 Obesity, unspecified; I10 Essential (primary) hypertension; M19.90 Unspecified osteoarthritis, unspecified site; F17.200 Nicotine dependence, unspecified, uncomplicated; Z68.37 Body mass index [BMI] 37.0-37.9, adult; Z79.84 Long term (current) use of oral hypoglycemic drugs; Z79.899 Other long term (current) drug therapy; Z90.710 Acquired absence of both cervix and uterus; Z98.890 Other specified postprocedural states; Z99.89 Dependence on other enabling machines and devices; Z79.4 Long term (current) use of insulin; Z88.8 Allergy status to other drugs, medicaments and biological substances; Z88.5 Allergy status to narcotic agent; Z88.3 Allergy status to other anti-infective agents
CPT/HCPCS: 99212

== ENCOUNTER → 2023-06-01 | Outpatient (CLI) | payer MEDICARE, OTHER ==
--- NOTE | 2023-06-01 12:08 | FL ---
EXAMINATION TYPE: FL UGI w esophagus DATE OF EXAM: 06/01/2023 11:03 AM COMPARISON: NONE CLINICAL HISTORY: Difficulty in swallowing. A total of 73 seconds of fluoroscopic time was utilized during procedure and images obtained. 837.69 DAP Preliminary view of the abdomen reveals a normal bowel gas pattern. Upper GI examination was performed according to the air contrast technique. Barium and effervescent crystal was swallowed without difficulty or delay. Esophageal peristalsis and motility are within no rmal limits. There is no evidence for esophagitis, intraluminal mass, hiatal hernia or gastroesophag eal reflux. The stomach has a normal appearance in terms of its size, shape and location. No gastri c filling defects or ulcer craters are seen. The duodenal bulb and sweep are also free of intralumin al lesion or ulcer crater. And single contrast cervical esophagram was also performed following the ingestion of thin liquid bar ium. There is no evidence for aspiration or penetration. No masses are seen. No filling defects ar e evident. IMPRESSION: Unremarkable evaluation.
== END | disposition home or self-care (01) ==
LOC: RADUSWWP 09:44
PROVIDERS: ATTEND Family Medicine
DX: R13.10 Dysphagia, unspecified (principal)
CPT/HCPCS: 74240

== ENCOUNTER → 2023-10-25 | Outpatient (CLI) | payer MEDICARE, OTHER ==
[2023-10-25 11:21] VITALS: BP 129/75; PULSE 103; RESP 18; TEMP 98.1
--- NOTE | 2023-10-25 12:18 | P.PN ---
Subjective DATE: 10/25/2023 FOLLOW UP VISIT. Patient with obstructive sleep apnea hypopnea syndrome return to sleep center for follow-up visit. Information from previous visit have been reviewed. Patient is using PAP equipment every night for the whole night, getting PAP supplies in time. The patient does not have significant problems with the mask, PAP unit and humidification. [place] sleepiness scale is 2, which is normal. I checked information from PAP unit. PAP unit pressure 5-14, average 13 cm H2O. Usage is 100% % for more then 4 hours, average 5.6 hours per night. Leak is slightly increased to 34 l/m. Apnea Hypopnea Index is 1.0, which is normal. MEDICATIONS:1. Metformin 1000 mg twice a day 2. Farxiga 5 mg once a day 3. Trulicity 4. Humalog 5. [place] 6. Meclizine 7. Rosuvastatin 40 mg once a day 8. Cyclobenzaprine 10 mg 3 times a day During physical exam: GENERAL: A pleasant patient without any distress. VITAL SIGNS: See below. HEENT: PERRLA, EOMI.low position of soft palate, Mallapati 4 . NECK: Supple. No JVD. LUNGS: Clear to percussion and to auscultation. Good air exchange. No wheezing or rhonchi. HEART: S1, S2 regular. ABDOMEN: Soft and nontender.[] EXTREMITIES: No clubbing or cyanosis. RN PLASMA CENTER: Awake, alert, and oriented x3. No focal deficit. Impressions: 1. Obstructive sleep apnea-hypopnea syndrome. Patient demonstrated great compliance with treatment, benefiting from treatment. 2. Hypertension. 3. Diabetes mellitus, recent hemoglobin A1c 6.9 according to patient. 4. Obesity, patient lost 7 pounds comparing with the previous visit. 5. History of arthritis. 6. Status post hysterectomy. 7. Status post tonsillectomy. Plan: 1. Continue using PAP equipment every night for the whole night. 2. To change air filter at least 1-2 times per month. 3. PAP unit should stay lower then position of the head. 4. Advised patient to remove all remaining water from humidifier canister daily and make it dry after each usage. Refill canister with fresh distilled water before each usage. 5. Sleep hygiene with regular time in bed for at least 8 hours. 6. Precautions related to driving. No driving if feel any sleepiness. 7. I will maintain prescription for PAP supplies including mask, tube, filters. 8. Watching and losing weight. 9. Follow up visit in 6 months or earlier if patient has any problems. Thank you very much for allowing me to participate in the management of your patient. Renan Kramer MD, PhD, FAASM. Diplomat of [place] [employer] Sleep Medicine, Sleep Medicine Board by [place] [employer] Sales Consultant of [facility] [place] Objective - Vital Signs Vital signs: Vital Signs Temp 98.1 F 10/25/23 11:12 Pulse 103 H 10/25/23 11:12 Resp 18 10/25/23 11:12 BP 129/75 10/25/23 11:12 Pulse Ox 94 L 10/25/23 11:12 FiO2
== END ==
LOC: 3 N SLEEP 10:55
PROVIDERS: ATTEND Internal Medicine
DX: G47.33 Obstructive sleep apnea (adult) (pediatric) (principal); I10 Essential (primary) hypertension; E11.9 Type 2 diabetes mellitus without complications; M19.90 Unspecified osteoarthritis, unspecified site; E66.9 Obesity, unspecified; F17.200 Nicotine dependence, unspecified, uncomplicated; Z98.890 Other specified postprocedural states; Z90.89 Acquired absence of other organs; Z99.89 Dependence on other enabling machines and devices; Z90.710 Acquired absence of both cervix and uterus; Z79.84 Long term (current) use of oral hypoglycemic drugs; Z79.899 Other long term (current) drug therapy; Z79.85 Long-term (current) use of injectable non-insulin antidiabetic drugs; Z88.8 Allergy status to other drugs, medicaments and biological substances; Z79.4 Long term (current) use of insulin
CPT/HCPCS: 99212

== ENCOUNTER → 2024-05-01 | Day surgery (SDC) | payer MEDICARE, OTHER ==
[2024-04-30 09:26] VITALS: BMI 38.9
[~2024-05-01] MED LIST: LIDOCAINE 1% INJ 10MG/ML (20 ML MDV) ONE; PROPOFOL 10 MG/ML 20 ML VIAL IV ONE
[2024-05-01] MEDS: LACTATED RINGERS 1,000 ML IV SCH (07:54)
[2024-05-01 07:57] LABS: Glucose,Whole Blood 108 mg/dL (70-110)
[2024-05-01 07:58] VITALS: TEMP 97.5
[2024-05-01] MEDS: IV FLUID CONTINUATION 1,000 ML IV ONE (07:58)
--- NOTE | 2024-05-01 09:00 | P.OP ---
Date of Procedure: 05/01/24 Preoperative Diagnosis: GI bleed GERD Postoperative Diagnosis: antral gastritis Diverticulosis External hemorrhoids Procedure(s) Performed: EGD Colonoscopy Anesthesia: MAC Surgeon: Tu Choi Pathology: other (antrum) Condition: stable Disposition: PACU Description of Procedure: patient's placed on the endoscopy table in the lateral position. She received IV sedation. The gastroscope placed oropharynx past esophagus stomach. Scope was placed through the pylorus. First and second portion duodenum appeared normal. Scope summer back the antrum this. Mildly inflamed. A biopsies performed. Scope was then retroflexed and remainder the stomach appeared normal. The GE junction was at 40 cm. There was no hiatal hernia. The distal esophagus appeared normal. Proximal esophagus appeared normal. Scope withdrawn for patient. Next digital rectal exam was performed. This revealed external hemorrhoids. The flexible colonoscope was then placed patient anus passed with colon. [place] passed into the cecum secondary to tortuosity valve. Several times made to enter the proximal right colon there was some possible. Point scope withdrawn. The pectoralis fascia appeared normal. The transverse colon appeared normal. In the descending; there is moderate diverticular changes. Scope back the rectum this appeared normal. Scope withdrawn for patient. Presumed patient may have had bleeding from hemorrhoids. Patient was scheduled for a barium enema.
[2024-05-01 09:05] VITALS: RESP 16
[2024-05-01 09:24] VITALS: BP 129/69; PULSE 72
[2024-05-01 09:54] LABS: Glucose,Whole Blood 116 mg/dL (70-110)
--- NOTE | 2024-05-01 15:32 | FL ---
EXAMINATION TYPE: FL barium enema DATE OF EXAM: 05/01/2024 COMPARISON: NONE HISTORY: 64-year-old female failed colonoscopy, scope to the sigmoid colon. No biopsies. Patient with some bleeding, possibly related to hemorrhoids. TECHNIQUE: A single contrast barium enema study is performed. A total of 54 seconds of fluoroscopic time was utilized during procedure and 67 images obtained. Total dose area product (DAP) in uGy*m?, mGy*cm? (or similar): 75. FINDINGS: Care Navigator view of the abdomen shows overall non-obstructive bowel gas pattern. Prominent resid ual colonic air remains. Decision is made to proceed with a single contrast exam due to the colonic a ir. Some surgical material suggested at the bilateral adnexa. Pelvic phleboliths. There is domi-ol-pxatsadi tortuosity of the sigmoid colon. Minimal diverticular change in the sigmoid colon. No evidence for obstructing or constricting lesion throughout the colon.. There is additional tortuosity of the transverse colon. On fluoroscopic images, there is some mural irregularity at the hepatic flexure of the colon that could represent some adherent stool material or a sessile polyp. No other evidence of any other mass or polyp. IMPRESSION: 1. Exam limitations due to redundancy of both the transverse colon and sigmoid colon. 2. Some mural irregularity at the splenic flexure of the colon could represent residual adherent stoo l material versus a sessile polyp. Further assessment as clinically indicated. 3. Minimal sigmoid diverticulosis.
== END | disposition home or self-care (01) ==
LOC: ORWHC2ENDO 06:52
PROVIDERS: ATTEND Surgery
DX: K64.4 Residual hemorrhoidal skin tags (principal); K29.70 Gastritis, unspecified, without bleeding; K57.31 Diverticulosis of large intestine without perforation or abscess with bleeding; K21.9 Gastro-esophageal reflux disease without esophagitis; I10 Essential (primary) hypertension; E78.5 Hyperlipidemia, unspecified; J44.9 Chronic obstructive pulmonary disease, unspecified; Z79.899 Other long term (current) drug therapy
CPT/HCPCS: 88305; 74270; 45378; 43239; J2001; J2704

== ENCOUNTER 2024-05-27 06:20 | Day surgery (SDC) | payer MEDICARE, OTHER ==
[~2024-05-27 06:20] MED LIST changes: -LIDOCAINE 1% INJ 10MG/ML (20 ML MDV) ONE; -PROPOFOL 10 MG/ML 20 ML VIAL IV ONE; +Pre Op ABX Message 1 EACH MISC MISCELLANE ONE; +SCOPOLAMINE 1 MG/72 HR PATCH TRANSDERM ONE
[2024-05-27] MEDS ORDERED: MIDAZOLAM 2 MG/2 ML VIAL IV PRN (07:00)
[2024-05-27] MEDS ORDERED: HYDROmorphone 0.5 MG/0.5 ML SYRINGE IVP PRN (07:00)
[2024-05-27] MEDS: ACETAMINOPHEN TAB 500 MG TAB PO PRN (07:14)
[2024-05-27] MEDS: DEXAMETHASONE SOD PHOSPHATE 4 MG/ML 1 ML VIAL IV ONE (07:14)
[2024-05-27] MEDS: ONDANSETRON 4 MG/2 ML VIAL IVP ONE (07:14)
[2024-05-27] MEDS: HEPARIN SODIUM,PORCINE 5,000 UNIT/ML 1 ML VIAL SQ PRN (07:15)
[2024-05-27] MEDS: IV FLUID CONTINUATION 1,000 ML IV ONE (07:15)
[2024-05-27] MEDS: LACTATED RINGERS 1,000 ML IV SCH (07:15)
[2024-05-27] MEDS: LIDOCAINE 1%-EPI 1:100,000 20 ML VIAL SQ ONE ×2 (07:20)
[2024-05-27 07:24] LABS: Glucose,Whole Blood 169 mg/dL (70-110)
[2024-05-27] MEDS ORDERED: SUCCINYLCHOLINE CHLORIDE 200 MG/10 ML VIAL IV ONE (07:32)
[2024-05-27] MEDS ORDERED: LIDOCAINE 4% LTA KIT (4 ML) TOPICAL ONE (07:32)
[2024-05-27] MEDS ORDERED: KETAMINE HCL IN 0.9 % NACL 50 MG/5 ML SYRINGE ONE (07:32)
[2024-05-27] MEDS ORDERED: PROPOFOL 10 MG/ML 20 ML VIAL IV ONE (07:32)
[2024-05-27] MEDS ORDERED: fentaNYL (PF) 50 MCG/ML 2 ML AMP ONE (07:32)
[2024-05-27] MEDS ORDERED: MIDAZOLAM 2 MG/2 ML VIAL ONE (07:32)
[2024-05-27] MEDS ORDERED: ceFAZolin 1 GM/50 ML BAG (PMX) ONE (07:32)
[2024-05-27] MEDS: SODIUM CHLORIDE 0.9% 100 ML with ceFAZolin 2,000 MG IV ONE (07:36)
--- NOTE | 2024-05-27 08:33 | P.OP ---
Date of Procedure: 05/27/24 Preoperative Diagnosis: Internal/external hemorrhoids Postoperative Diagnosis: External hemorrhoids Procedure(s) Performed: Internal/external hemorrhoidectomy Anesthesia: MISHA Surgeon: Tu Choi Estimated Blood Loss (ml): 5 Pathology: other (Internal/external hemorrhoids) Condition: stable Disposition: PACU Description of Procedure: The patient is placed on the operative table in the prone jackknife position after receiving general anesthesia. Her anus was prepped and draped you sterile fashion. The patient had large internal/external hemorrhoids. Using the anal retractor the hemorrhoids were exposed. The left lateral hemorrhoidal column was addressed first. The hemorrhoid was grasped with a pair of Allis clamps. And then used the harmonic scissors hemorrhoidectomies performed. The right anterior and right posterior columns were excised identical fashion. There is no bleeding seen. These suspect the Gelf[place]am. 1% lidocaine was injected into the anus. Patient Toller procedure well. She was sent to recovery in stable condition.
[2024-05-27 08:52] VITALS: TEMP 98
[2024-05-27 09:16] LABS: Glucose,Whole Blood 171 mg/dL (70-110)
[2024-05-27 09:24] VITALS: RESP 16
[2024-05-27 09:44] VITALS: BP 122/60; PULSE 80
== END 2024-05-27 10:06 | disposition home or self-care (01) ==
LOC: OR 06:20
PROVIDERS: ATTEND Surgery
DX: K64.8 Other hemorrhoids (principal); K64.4 Residual hemorrhoidal skin tags; K21.9 Gastro-esophageal reflux disease without esophagitis; M81.0 Age-related osteoporosis without current pathological fracture; F17.200 Nicotine dependence, unspecified, uncomplicated; Z79.85 Long-term (current) use of injectable non-insulin antidiabetic drugs; Z79.84 Long term (current) use of oral hypoglycemic drugs; Z79.4 Long term (current) use of insulin; Z79.899 Other long term (current) drug therapy
CPT/HCPCS: 88304

== ENCOUNTER → 2024-05-29 | Outpatient (CLI) | payer MEDICARE, OTHER ==
[2024-05-29 11:17] VITALS: BP 141/86; PULSE 90; RESP 16; TEMP 97.4
--- NOTE | 2024-05-29 11:30 | P.PROGSL ---
Subjective DATE: 05/29/2024 FOLLOW UP VISIT. Patient with obstructive sleep apnea hypopnea syndrome return to sleep center for follow-up visit. Information from previous visit have been reviewed. Patient is using PAP equipment every night for the whole night, getting PAP supplies in time. The patient does not have significant problems with the mask, PAP unit and humidification. [place] sleepiness scale is 0, which is perfect. I checked information from PAP unit. PAP unit pressure 5-14 cm H2O. Usage is 100% for more then 4 hours, average 5 hours per night. Leak is 11 l/m, which is in acceptable range. Apnea Hypopnea Index is 1.7, which is normal. MEDICATIONS have been reviewed, please see below. During physical exam: GENERAL: A pleasant patient without any distress. VITAL SIGNS: Please see below, weight is 207 lbs. HEENT: PERRLA, EOMI.low position of soft palate, Mallapati 4 . NECK: Supple. No JVD. LUNGS: Clear to percussion and to auscultation. Good air exchange. No wheezing or rhonchi. HEART: S1, S2 regular. ABDOMEN: Soft and nontender. Obese EXTREMITIES: No clubbing or cyanosis. 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 No focal deficit. Impressions: 1. Obstructive sleep apnea-hypopnea syndrome. Patient demonstrated great compliance with treatment, benefiting from treatment. 2. Status post hemorrhoidectomy surgery 2 days ago. 3. Diabetes mellitus, according to patient hemoglobin A1c 6.9. 4. Hypertension. 5. History of arthritis. 6. Status post tonsillectomy. 7. Status post hysterectomy. Plan: 1. Continue using PAP equipment every night for the whole night. 2. Sleep hygiene with regular time in bed for at least 7.5-8 hours 3. PAP unit should stay lower then position of the head. 4. Advised patient to remove all remaining water from humidifier canister daily and make it dry after each usage. Refill canister with fresh distilled water before each usage. 5. Watching and losing weight. 6. Precautions related to driving. No driving if feel any sleepiness. 7. I will maintain prescription for PAP supplies including mask, tube, filters. 8. Follow up visit in 6 months or earlier if patient has any problems. Thank you very much for allowing me to participate in the management of your patient. Renan Kramer MD, PhD, FAASM. Diplomat of [place] [employer], Sleep Medicine Board by [place] [employer] Instrument Adjuster of [facility] [place] Objective - Vital Signs Vital Signs: Vital Signs Temp 97.4 F L 05/29/24 11:16 Pulse 90 05/29/24 11:16 Resp 16 05/29/24 11:16 BP 141/86 05/29/24 11:16 Pulse Ox 96 05/29/24 11:16 FiO2 Intake & Output 05/28/24 05/29/24 05/29/24 18:59 06:59 18:59 Weight 93.894 kg Home Medications: Home Medications Medication Instructions Recorded Confirmed Type HYDROcodone/APAP 10-325MG [[place] 1 tab PO QID 07/26/17 05/29/24 History 10-325] Rosuvastatin Calcium [Crestor] 40 mg PO HS 07/26/17 05/29/24 History metFORMIN HCL [Glucophage] 1,000 mg PO BID 07/26/17 05/29/24 History Albuterol Inhaler [Ventolin Hfa 1 - 2 puff INHALATION RT-Q6H PRN 10/11/19 05/29/24 Rx Inhaler] #1 inhaler Dapagliflozin Propanediol [Farxiga] 5 mg PO DAILY 10/25/23 05/29/24 History Dulaglutide [Trulicity] 0.75 mg SQ FR 10/25/23 05/29/24 History Insulin Lispro Protamin/Lispro 32 units SQ AC-SUPPER 10/25/23 05/29/24 History [humaLOG MIX 75-25 Kwikpen] Insulin Lispro Protamin/Lispro 48 unit SQ AC-BRKFST 10/25/23 05/29/24 History [humaLOG MIX 75-25 Kwikpen] Meclizine [Antivert] 25 mg PO DIRECTED PRN 10/25/23 05/29/24 History Cyclobenzaprine [Flexeril] 10 mg PO DAILY PRN 04/30/24 05/29/24 History Stool Softener 1 tab PO DAILY 05/21/24 05/27/24 History Acetaminophen Tab [Tylenol] 650 mg PO Q6H #30 tab 05/27/24 Rx Docusate [Colace] 100 mg PO BID #20 capsule 05/27/24 Rx Ibuprofen [Motrin] 600 mg PO Q6HR PRN #40 tab 05/27/24 Rx oxyCODONE HCL [OxyIR] 5 mg PO Q6H PRN 6 Days #20 tab 05/27/24 Rx
== END ==
LOC: 3 N SLEEP 10:47
PROVIDERS: ATTEND Internal Medicine
CPT/HCPCS: 99212

== ENCOUNTER → 2024-07-16 | Outpatient (CLI) | payer MEDICARE, OTHER ==
--- NOTE | 2024-07-18 15:19 | MM ---
Reason for Exam: Screening (asymptomatic). Last mammogram was performed 1 year(s) and 2 month(s) ago. Patient History: Menarche at age 15. First Full-Term at age 18. Left ovary removed at age 40. Right ovary removed at age 40. Hysterectomy at age 40. Postmenopausal. Patient has history of breast feeding. Maternal cousin (Laurel) had breast cancer, age 33. Maternal cousin had breast cancer, age 44. Risk Values: Julianne 5 year model risk: 1.0%. NCI Lifetime model risk: 4.4%. Prior Study Comparison: 04/14/2021 Bilateral Screening Mammogram, [facility]. 05/05/2022 Bilateral MG screening mammo w CAD, [facility]. 05/16/2023 Bilateral MG screening mammo w CAD, [facility]. Tissue Density: The breasts are almost entirely fatty. Findings: Analyzed By CAD. Minimal benign secretory and round calcifications are noted. There is no suspicious group of microcalcifications or new suspicious mass in either breast. Overall Assessment: Benign, BI-RAD 2 Management: Screening Mammogram of both breasts in 1 year. . Patient should continue monthly self-breast exams. A clinical breast exam by your physician is recommended on an annual basis. This exam should not preclude additional follow-up of suspicious palpable abnormalities. Note on Julianne scores and lifetime risk: 1. A Julianne score greater than 3% is considered moderate risk. If this is the case, consider specialist referral to assess eligibility for a risk reducing agent. 2. If overall lifetime risk for the development of breast cancer is 20% or higher, the patient may qualify for future screening with alternating mammogram and breast MRI. [facility], , 07/18/2024 3:16 PM. Electronically signed and approved by: Bibi Ye M.D. Radiologist
== END | disposition home or self-care (01) ==
LOC: RADMAMWWP 09:37
PROVIDERS: ATTEND Family Medicine
DX: Z12.31 Encounter for screening mammogram for malignant neoplasm of breast (principal); Z78.0 Asymptomatic menopausal state; Z80.3 Family history of malignant neoplasm of breast; Z90.722 Acquired absence of ovaries, bilateral; R92.313 Mammographic fatty tissue density, bilateral breasts
CPT/HCPCS: 77067

== ENCOUNTER → 2025-02-05 | Outpatient (CLI) | payer MEDICARE, OTHER ==
[2025-02-05 11:37] VITALS: BP 137/79; PULSE 99; RESP 16; TEMP 98
--- NOTE | 2025-02-05 11:58 | P.PROGSL ---
Subjective DATE: 02/05/2025 FOLLOW UP VISIT. Patient with obstructive sleep apnea hypopnea syndrome return to sleep center for follow-up visit. Information from previous visit have been reviewed. Patient is using PAP equipment every night for the whole night, getting PAP supplies in time. The patient does not have significant problems with the mask, PAP unit and humidification. [place] sleepiness scale is 0, which is perfect. I checked information from PAP unit. PAP unit pressure 5-14, average 13.3 cm H2O. Usage is 100% for more then 4 hours, average 4.6 hours per night. Leak is 24 l/m, which is in acceptable range. Apnea Hypopnea Index is 1.2, which is normal. MEDICATIONS have been reviewed, please see below. During physical exam: GENERAL: A pleasant patient without any distress. VITAL SIGNS: Please see below, weight is 203 lbs. HEENT: PERRLA, EOMI.low position of soft palate, Mallapati 4 . NECK: Supple. No JVD. LUNGS: Clear to percussion and to auscultation. Good air exchange. No wheezing or rhonchi. HEART: S1, S2 regular. ABDOMEN: Soft and nontender.[] EXTREMITIES: No clubbing or cyanosis. 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 No focal deficit. Impressions: 1. Obstructive sleep apnea-hypopnea syndrome. Patient demonstrated great compliance with treatment, benefiting from treatment. 2. Mild obesity, BMI 35.2, patient lost 4 pounds comparing with previous visit. 3. Diabetes mellitus, recent hemoglobin A1c according to patient 7.1. 4. Hypertension. 5. History of arthritis. 6. Status post total hysterectomy. 7. Status post tonsillectomy. Plan: 1. Continue using PAP equipment every night for the whole night. 2. Sleep hygiene with regular time in bed for at least 7.5-8 hours 3. PAP unit should stay lower then position of the head. 4. Advised patient to remove all remaining water from humidifier canister daily and make it dry after each usage. Refill canister with fresh distilled water before each usage. 5. Watching weight. 6. Precautions related to driving. No driving if feel any sleepiness. 7. I will maintain prescription for PAP supplies including mask, tube, filters. 8. Follow up visit in 8 months or earlier if patient has any problems. Thank you very much for allowing me to participate in the management of your patient. Renan Kramer MD, PhD, FAASM. Diplomat of [place] [employer], Sleep Medicine Board by [place] [employer] Jar Capper of [facility] [place] Objective - Vital Signs Vital Signs: Vital Signs Temp 98 F 02/05/25 11:36 Pulse 99 02/05/25 11:36 Resp 16 02/05/25 11:36 BP 137/79 02/05/25 11:36 Pulse Ox 96 02/05/25 11:36 FiO2 Intake & Output 02/04/25 02/05/25 02/05/25 18:59 06:59 18:59 Weight 92.079 kg Home Medications: Home Medications Medication Instructions Recorded Confirmed Type HYDROcodone/APAP 10-325MG [[place] 1 tab PO QID 07/26/17 02/05/25 History 10-325] Rosuvastatin Calcium [Crestor] 40 mg PO HS 07/26/17 02/05/25 History metFORMIN HCL [Glucophage] 1,000 mg PO BID 07/26/17 02/05/25 History Albuterol Inhaler [Ventolin Hfa 1 - 2 puff INHALATION RT-Q6H PRN 10/11/19 02/05/25 Rx Inhaler] #1 inhaler Dapagliflozin Propanediol [Farxiga] 5 mg PO DAILY 10/25/23 02/05/25 History Dulaglutide [Trulicity] 0.75 mg SQ FR 10/25/23 02/05/25 History Insulin Lispro Protamin/Lispro 32 units SQ AC-SUPPER 10/25/23 05/29/24 History [humaLOG MIX 75-25 Kwikpen] Insulin Lispro Protamin/Lispro 48 unit SQ AC-BRKFST 10/25/23 05/29/24 History [humaLOG MIX 75-25 Kwikpen] Meclizine [Antivert] 25 mg PO DIRECTED PRN 10/25/23 02/05/25 History Cyclobenzaprine [Flexeril] 10 mg PO DAILY PRN 04/30/24 02/05/25 History Stool Softener 1 tab PO DAILY 05/21/24 05/27/24 History Acetaminophen Tab [Tylenol] 650 mg PO Q6H #30 tab 05/27/24 Rx Docusate [Colace] 100 mg PO BID #20 capsule 05/27/24 Rx Ibuprofen [Motrin] 600 mg PO Q6HR PRN #40 tab 05/27/24 Rx oxyCODONE HCL [OxyIR] 5 mg PO Q6H PRN 6 Days #20 tab 05/27/24 Rx Cholecalciferol (Vitamin D3) 125 mcg PO DAILY 02/05/25 02/05/25 History [Vitamin D3 (125 MCG = 5,000 IU)] Insulin Aspart Prot/Insuln Asp 48 units INJ DAILY 02/05/25 02/05/25 History [NovoLOG MIX 70-30 Flexpen] Tirzepatide [Mounjaro] 2.5 mg SQ WEEKLY 02/05/25 02/05/25 History
== END ==
LOC: 3 N SLEEP 11:16
PROVIDERS: ATTEND Internal Medicine
DX: G47.33 Obstructive sleep apnea (adult) (pediatric) (principal); E66.9 Obesity, unspecified; E11.9 Type 2 diabetes mellitus without complications; I10 Essential (primary) hypertension; F17.200 Nicotine dependence, unspecified, uncomplicated; F12.90 Cannabis use, unspecified, uncomplicated; Z87.39 Personal history of other diseases of the musculoskeletal system and connective tissue; Z99.89 Dependence on other enabling machines and devices; Z68.35 Body mass index [BMI] 35.0-35.9, adult; Z90.89 Acquired absence of other organs; Z90.710 Acquired absence of both cervix and uterus; Z88.8 Allergy status to other drugs, medicaments and biological substances
CPT/HCPCS: 99212